=== PATIENT | female | born 1945 | race Caucasian/White ===

== ENCOUNTER → 2017-07-11 | Outpatient (CLI) | payer MEDICARE ==
[2017-07-11 13:08] LABS: Basophils % (A) 1 %; CH 27.6; CHCM 33.2; Eosinophils # (A) 0.3 k/uL (0-0.7); Eosinophils % (A) 6 %; HCT 38.2 % (34.0-46.0); HDW 2.71; HGB 12.8 gm/dL (11.4-16.0); Luc # (Auto) 0.13; Luc % (Auto) 3; Lymphocytes % (A) 39 %; MCH 28.1 pg (25.0-35.0); MCHC 33.6 g/dL (31.0-37.0); MCV 83.6 fL (80.0-100.0); Mean Platelet Volume 6.5; Monocytes # (A) 0.4 k/uL (0-1.0); Monocytes % (A) 7 %; Neutrophils # (A) 2.4 k/uL (1.3-7.7); Neutrophils % (A) 46 %; RBC 4.57 m/uL (3.80-5.40); RDW 13.5 % (11.5-15.5); WBC 5.2 k/uL (3.8-10.6); WBC (Perox) 5.18
[2017-07-11 13:48] LABS: ALT 18 U/L (9-52); AST 17 U/L (14-36); Alkaline Phosphatase 82 U/L (38-126); Anion Gap 6 mmol/L; Blood Urea Nitrogen 16 mg/dL (7-17); Calcium 9.3 mg/dL (8.4-10.2); Carbon Dioxide 29 mmol/L (22-30); Chloride 103 mmol/L (98-107); Cholesterol 238 mg/dL (<200); Glucose 94 mg/dL (74-99); HDL Cholesterol 54 mg/dL (40-60); Non-African American GFR(MDRD) >60 (>60 ml/min/1.73 sqM); Potassium 4.3 mmol/L (3.5-5.1); Sodium 138 mmol/L (137-145); Total Bilirubin 0.3 mg/dL (0.2-1.3); Total Protein 6.5 g/dL (6.3-8.2)
[2017-07-11 14:37] LABS: Vitamin B12 699 pg/mL
== END | disposition home or self-care (01) ==
LOC: LABWHC1 12:14
PROVIDERS: ATTEND Family Medicine
DX: R03.0 Elevated blood-pressure reading, without diagnosis of hypertension (principal); Z79.899 Other long term (current) drug therapy; F41.8 Other specified anxiety disorders; F32.9 Major depressive disorder, single episode, unspecified
CPT/HCPCS: 36415; 80053; 80061; 82607; 84443; 85025

== ENCOUNTER → 2017-07-23 | Outpatient (CLI) | payer MEDICARE ==
--- NOTE | 2017-07-25 12:26 | MM ---
Reason for exam: screening (asymptomatic). Last mammogram was performed 16 years ago. History: Patient is postmenopausal. Family history of breast cancer in mother. Physical Findings: A clinical breast exam by your physician is recommended on an annual basis and results should be correlated with mammographic findings. MG 3D Screening Mammo W/Cad Bilateral CC and MLO view(s) were taken. No prior studies available for comparison. There are scattered fibroglandular densities. A couple circumscribed oval asymmetries are present laterally in the right breast. Cysts or fibroadenomas are possible. 6 month follow up should be performed as no comparison studies are available. ASSESSMENT: Probably benign, BI-RAD 3 RECOMMENDATION: Follow-up diagnostic mammogram of the right breast in 6 months.
== END | disposition home or self-care (01) ==
LOC: RADMAMWWP 14:07
PROVIDERS: ATTEND Family Medicine
DX: Z12.31 Encounter for screening mammogram for malignant neoplasm of breast (principal)
CPT/HCPCS: 77063; G0202

== ENCOUNTER → 2018-02-05 | Outpatient (CLI) | payer MEDICARE ==
--- NOTE | 2018-02-06 07:47 | MM ---
Reason for exam: follow-up at short interval from prior study. Last mammogram was performed 6 months ago. History: Patient is postmenopausal. Family history of breast cancer in mother. Physical Findings: Nurse did not find any significant physical abnormalities on exam. MG 3D Diag Mammo W/Cad RT CC, MLO, and LM view(s) were taken of the right breast. Prior study comparison: July 23, 2017, bilateral MG 3d screening mammo w/cad. The breast tissue is heterogeneously dense. This may lower the sensitivity of mammography. There is a stable group of calcifications in the upper outer quadrant at middle depth in association with a stable focal asymmetry. Upper outer quadrant in the central lateral right breast at middle depth is also stable. These results were verbally communicated with the patient and result sheet given to the patient on 02/05/18. ASSESSMENT: Probably benign, BI-RAD 3 RECOMMENDATION: Follow-up diagnostic mammogram of both breasts in 6 months.
== END | disposition home or self-care (01) ==
LOC: RADMAMWWP 16:01
PROVIDERS: ATTEND Family Medicine
DX: R92.8 Other abnormal and inconclusive findings on diagnostic imaging of breast (principal)
CPT/HCPCS: 77065; G0279

== ENCOUNTER → 2018-06-20 | Outpatient (CLI) | payer MEDICARE ==
--- NOTE | 2018-06-21 09:12 | ECHOF ---
Referral Reason:cardiac murmur R01.1, hypertension I10 MEASUREMENTS -------- HEIGHT: 172.7 cm WEIGHT: 77.6 kg BP: 160/73 RVIDd: 3.3 cm (< 3.3) IVSd: 1.0 cm (0.6 - 1.1) LVIDd: 4.9 cm (3.9 - 5.3) LVPWd: 1.0 cm (0.6 - 1.1) IVSs: 1.6 cm LVIDs: 3.3 cm LVPWs: 1.3 cm LA Diam: 2.5 cm (2.7 - 3.8) LAESV Index (A-L): 15.06 ml/m Ao Diam: 3.8 cm (2.0 - 3.7) AV Cusp: 2.0 cm (1.5 - 2.6) MV EXCURSION: 7.809 mm (> 18.000) MV EF SLOPE: 41 mm/s (70 - 150) EPSS: 1.0 cm SYEDA: 488 ms AVC: 391 ms MV E Ben: 0.68 m/s MV DecT: 481 ms MV A Ben: 1.17 m/s MV E/A Ratio: 0.58 AR PHT: 468 ms RAP: 5.00 mmHg RVSP: 27.80 mmHg FINDINGS -------- Sinus rhythm. This was a technically good study. The left ventricular size is normal. Left ventricular wall thickness is normal. Overall left vent ricular systolic function is normal with, an EF between 55 - 60 %. The right ventricle is mildly enlarged. Normal LA size by volume 22+/-6 ml/m2. The right atrium is normal in size. There is mild aortic valve sclerosis. There is moderate aortic regurgitation. There is no evidenc e of aortic stenosis. Mild mitral annular calcification present. Mild mitral regurgitation is present. Mild tricuspid regurgitation present. Right ventricular systolic pressure is normal at < 35 mmHg. The right ventricular systolic pressure, as measured by Doppler, is 27.80mmHg. The pulmonic valve was not well visualized. There is no pulmonic regurgitation present. The aortic root is dilated measuring 3.8cm. Normal inferior vena cava with normal inspiratory collapse consistent with estimated right atrial pre ssure of 5 mmHg. There is no pericardial effusion. CONCLUSIONS -------- 1. Sinus rhythm. 2. This was a technically good study. 3. The left ventricular size is normal. 4. Left ventricular wall thickness is normal. 5. Overall left ventricular systolic function is normal with, an EF between 55 - 60 %. 6. The right ventricle is mildly enlarged. 7. Normal LA size by volume 22+/-6 ml/m2. 8. There is mild aortic valve sclerosis. 9. There is moderate aortic regurgitation. 10. There is no evidence of aortic stenosis. 11. Mild mitral annular calcification present. 12. Mild mitral regurgitation is present. 13. Mild tricuspid regurgitation present. 14. Right ventricular systolic pressure is normal at < 35 mmHg. 15. The pulmonic valve was not well visualized. 16. There is no pulmonic regurgitation present. 17. The aortic root is dilated measuring 3.8cm. 18. Normal inferior vena cava with normal inspiratory collapse consistent with estimated right atrial pressure of 5 mmHg. 19. There is no pericardial effusion. CO DIRECTOR: Joleen Walden RDCS
== END | disposition home or self-care (01) ==
LOC: RADECHMAIN 14:58
PROVIDERS: ATTEND Family Medicine
DX: I08.3 Combined rheumatic disorders of mitral, aortic and tricuspid valves (principal); I10 Essential (primary) hypertension
CPT/HCPCS: 93306

== ENCOUNTER → 2018-07-12 | Outpatient (CLI) | payer MEDICARE ==
[2018-07-12 12:33] LABS: Basophils % (A) 1 %; Eosinophils # (A) 0.3 k/uL (0-0.7); Eosinophils % (A) 6 %; HCT 40.3 % (34.0-46.0); HGB 13.1 gm/dL (11.4-16.0); Lymphocytes # (A) 1.6 k/uL (1.0-4.8); Lymphocytes % (A) 34 %; MCHC 32.5 g/dL (31.0-37.0); Mean Platelet Volume 6.8; Monocytes # (A) 0.3 k/uL (0-1.0); Monocytes % (A) 7 %; Neutrophils # (A) 2.4 k/uL (1.3-7.7); Neutrophils % (A) 50 %; Platelet Count 218 k/uL (150-450); RBC 4.69 m/uL (3.80-5.40); RDW 13.6 % (11.5-15.5); WBC 4.8 k/uL (3.8-10.6)
[2018-07-12 13:23] LABS: ALT 11 U/L (9-52); AST 19 U/L (14-36); Alkaline Phosphatase 66 U/L (38-126); Anion Gap 8 mmol/L; Blood Urea Nitrogen 17 mg/dL (7-17); Calcium 9.3 mg/dL (8.4-10.2); Carbon Dioxide 28 mmol/L (22-30); Chloride 104 mmol/L (98-107); Cholesterol 250 mg/dL (<200); Glucose 101 mg/dL (74-99); HDL Cholesterol 63 mg/dL (40-60); LDL Cholesterol,Calculated 171 mg/dL (0-99); Potassium 4.7 mmol/L (3.5-5.1); Sodium 140 mmol/L (137-145); Total Bilirubin 0.4 mg/dL (0.2-1.3); Total Protein 6.9 g/dL (6.3-8.2); Triglycerides 80 mg/dL (<150)
== END | disposition home or self-care (01) ==
LOC: LABWHC1 12:10
PROVIDERS: ATTEND Family Medicine
DX: Z00.00 Encounter for general adult medical examination without abnormal findings (principal); I10 Essential (primary) hypertension
CPT/HCPCS: 36415; 80053; 80061; 84443; 85025

== ENCOUNTER 2019-04-28 19:17 | Emergency (ER) | payer MEDICARE ==
[2019-04-28 20:00] VITALS: BP 144/89; PULSE 90; RESP 18; TEMP 98.6
[2019-04-28] MEDS ORDERED: DIPH,PERTUS(ACELL)TETVAC-LF 0.5 ML VIAL IM ONE (20:02)
[2019-04-28] MEDS ORDERED: LIDOCAINE 1% INJ 10MG/ML (20 ML MDV) SQ ONE (20:02)
[2019-04-28] MEDS ORDERED: LIDOCAINE 1%-EPI 1:100,000 20 ML VIAL SQ STA (20:48)
--- NOTE | 2019-04-28 21:28 | ED ---
Wound/Laceration HPI - General Chief Complaint: Wound/Laceration Stated Complaint: Leg Bleed Time Seen by Provider: 04/28/19 19:19 Source: patient, EMS Mode of arrival: EMS Limitations: no limitations - History of Present Illness Initial Comments: 73-year-old female presenting for right lower leg anterior isabel laceration. Patient states she cut her leg with tree trimmers. Patient states she is unable to control the bleeding so she presents emergency department. Patient was brought to emergency per [facility]. 500 L bolus of saline was initiated. Patient blood pressure within normal limits. Bleeding is controlled. No active bleeding at this time. Patient denies numbness tingling or loss sensation of the lower extremity. She denies any pain with ambulation or inability to weight-bear. Patient denies any decreased range of motion at the knee and ankle or foot. Remaining review of system negative. Patient appears well upon arrival. - Related Data Allergies Allergy/AdvReac Type Severity Reaction Status Date / Time codeine Allergy Rash/Hives Verified 04/28/19 20:22 Review of Systems ROS Statement: Those systems with pertinent positive or pertinent negative responses have been documented in the HPI. ROS Other: All systems not noted in ROS Statement are negative. Past Medical History Past Medical History: Hypertension History of Any Multi-Drug Resistant Organisms: None Reported Past Psychological History: ADD/ADHD Smoking Status: Never smoker Past Alcohol Use History: Rare Past Drug Use History: None Reported General Exam - General Exam Comments Initial Comments: General: The patient is awake and alert, in no distress, and does not appear acutely ill. Eye: Pupils are equal, round and reactive to light, extra-ocular movements are intact. No nystagmus. There is normal conjunctiva bilaterally. No signs of icterus. Cardiovascular: There is a regular rate and rhythm. No murmur, rub or gallop is appreciated. Respiratory: Lungs are clear to auscultation, respirations are non-labored, breath sounds are equal. No wheezes, stridor, rales, or rhonchi. Musculoskeletal: Normal ROM, no tenderness. Strength 5/5. Sensation intact. DP pulses equal bilaterally 2+. Cap refill less than 2 seconds. Full range motion of the knee ankles foot bilaterally. Equal. Neurological: A&O x 3. CN II-XII intact, There are no obvious motor or sensory deficits. Coordination appears grossly intact. Speech is normal. Skin: Skin is warm and dry and no rashes or lesions are noted. 3cm lacertion of the right anterior isabel about 4 inches from the knee joint distally. No active bleeding, small amount of adipose exposed. Linear, clean cute. Psychiatric: Cooperative, appropriate mood & affect, normal judgment. Limitations: no limitations Course Vital Signs 04/28/19 19:37 Temperature 98.6 F Pulse Rate 90 Respiratory 18 Rate Blood Pressure 144/89 O2 Sat by Pulse 97 Oximetry Procedures - Laceration Laceration #1 Consent Obtained: verbal consent Indication: laceration Site: lower extremity Size (cm): 3 Description: linear Depth: simple, single layer Anesthetic Used: lidocaine 1% Anesthesia Technique: local infiltration Amount (mls): 3 Pre-repair: wound explored, irrigated extensively, deep structures intact Type of Sutures: nylon Size of Sutures: 4-0 Number of Sutures: 8 Patient Tolerated Procedure: well, no complications Medical Decision Making - Medical Decision Making Well-appearing 33-year-old female presented for right leg laceration bleeding controlled upon arrival. No active bleeding. Patient appears well. Laceration linear appears clean. Laceration is relatively superficial. No evidence of underlying structural damage. No foreign body evident wound extensively irrigated and cleansed with iodine. Repaired. Patient able to weight-bear. Patient neurovascular intact. This time feel patient is stable for discharge. Patient's tetanus was updated today. Parameters including time for suture removal and signs of infection were discussed at length the patient who verbalized understanding prior to discharge Disposition Clinical Impression: Leg laceration, Leg pain Disposition: HOME SELF-CARE Condition: Good Instructions (If sedation given, give patient instructions): Care For Your Stitches (ED), Laceration (ED) Additional Instructions: Please use medication as discussed. Please follow-up with family doctor in the next 2 days. Please return for suture removal in 7-10 days. Please return to emergency room if the symptoms increase or worsen or for any other concerns, redness, warmth, drainage at the site. Is patient prescribed a controlled substance at d/c from ED?: No Referrals: Clemencia Barker MD [Primary Care Provider] - 1-2 days Time of Disposition: 21:27
== END 2019-04-28 21:49 | disposition home or self-care (01) ==
LOC: EC 19:17
DX: S81.811A Laceration without foreign body, right lower leg, initial encounter (principal); Z88.5 Allergy status to narcotic agent; Z23 Encounter for immunization; W27.8XXA Contact with other nonpowered hand tool, initial encounter; Y93.01 Activity, walking, marching and hiking; Y92.009 Unspecified place in unspecified non-institutional (private) residence as the place of occurrence of the external cause
CPT/HCPCS: 90715; 99283; 12002; 90471; J2001

== ENCOUNTER → 2019-05-05 | Outpatient (CLI) | payer MEDICARE ==
--- NOTE | 2019-05-06 18:56 | BD ---
EXAMINATION TYPE: Axial Bone Density DATE OF EXAM: 05/05/2019 COMPARISON: NONE CLINICAL HISTORY: Height loss, Z 78.0, postmenopausal female Height: 65.5 IN Weight: 173 LBS FRAX RISK QUESTIONS: Secondary Osteoporosis: 4. Malnutrition: YES IN EARLY 20'S RISK FACTORS HISTORY OF: Active: YES Postmenopausal woman: AGE 52 Lost more than 2 inches in height since high school: YES 3" MEDICATIONS: Additional Medications: MULTI VIT, ZOLOFT, ADDERALL, ALLERGY MEDS, EXAM MEASUREMENTS: Bone mineral densitometry was performed using the [employer] System. Bone mineral density as measured about the Lumbar spine is: ----- L1-L4(G/cm2): 0.870 T Score Values are as follows: ----- L2: -3.2 ----- L3: -2.5 ----- L4: -1.8 ----- L1-L4: -2.6 Bone mineral density BASELINE Bone mineral density about the R hip (g/cm2): 0.774 Bone mineral density about the L hip (g/cm2): 0.869 T Score values are as follows: -----R Neck: -1.9 -----L Neck: -1.2 -----R Total: -1.5 -----L Total: -1.1 Bone mineral density BASELINE IMPRESSION: Osteoporosis (T Score less than -2.5). There is increased fracture risk and therapy is usually indicated based on age. Re-Screen 1-2 years. NOTE: T-SCORE=SD OF THE YOUNG ADULT MEAN.
--- NOTE | 2019-05-07 09:17 | MM ---
Reason for exam: additional evaluation requested from prior study. Last mammogram was performed 1 year and 3 months ago. History: Patient is postmenopausal. Family history of breast cancer in paternal aunt at age 50 and breast cancer in mother at age 70. Physical Findings: Nurse did not find any significant physical abnormalities on exam. MG 3D Diag Mammo W/Cad LENI Bilateral CC and MLO view(s) were taken. Prior study comparison: February 05, 2018, right breast MG 3d diag mammo w/cad RT. July 23, 2017, bilateral MG 3d screening mammo w/cad. Finding #1: There is a 7 mm high density mass in the upper outer quadrant of the right breast. Finding #2: There are indeterminate calcifications in the upper outer quadrant of the right breast. These results were verbally communicated with the patient and result sheet given to the patient on 05/05/19. ASSESSMENT: Incomplete: need additional imaging evaluation, BI-RAD 0 RECOMMENDATION: Ultrasound of the right breast.
--- NOTE | 2019-05-07 09:19 | USB ---
Reason for exam: additional evaluation requested from abnormal screening. History: Patient is postmenopausal. Family history of breast cancer in paternal aunt at age 50 and breast cancer in mother at age 70. US Breast Limited RT Right limited breast ultrasound including focal area of concern, retroareolar and axilla demonstrates a 0.9 x 0.5 x 0.6cm mixed, hypoechoic lesion at 12 o'clock. These results were verbally communicated with the patient and result sheet given to the patient on 05/05/19. ASSESSMENT: Suspicious, BI-RAD 4 RECOMMENDATION: Ultrasound core biopsy and stereotactic core biopsy of the right breast. (right breast calcifications) Called Dr. Barker with mammographic findings and has scheduled an appointment for the patient for 06/26/19 at 8:[address] Ramos. Biopsy scheduled for 06/13/19 at 8:00. PRELIMINARY REPORT CALLED AND FAXED TO DR. RAMOS ON 05/07/19.
== END | disposition home or self-care (01) ==
LOC: RADMAMWWP 15:21
PROVIDERS: ATTEND Family Medicine
DX: R92.8 Other abnormal and inconclusive findings on diagnostic imaging of breast (principal); M81.0 Age-related osteoporosis without current pathological fracture
CPT/HCPCS: 77080; 77066; 76642; G0279; 77062

== ENCOUNTER → 2019-08-07 | Day surgery (SDC) | payer MEDICARE ==
[2019-08-07 09:58] VITALS: RESP 16; TEMP 98.1; BMI 27.5
[2019-08-07 12:15] VITALS: BP 133/73; PULSE 71
--- NOTE | 2019-08-07 12:42 | USB ---
EXAMINATION TYPE: US biopsy breast VAD RT DATE OF EXAM: 08/07/2019 CLINICAL HISTORY: R92.8 ABN MAMMO. TECHNIQUE: Ultrasound guided core biopsy of right breast. COMPARISON: Right breast ultrasound dated 05/05/2019 FINDINGS: The procedure of ultrasound guided core biopsy was explained to the patient. Benefits, alternatives, and risks were discussed. An informed consent was then obtained. Preprocedural timeout was performed. The patient was placed in supine positioning for imaging and for the procedure. The overlying skin was prepped and draped in usual sterile fashion. Lidocaine buffered with bicarbonate was used as anesthetic into the skin and subcutaneous tissue up to a 0.9 cm mass at the 12:00 position in the right breast. Under ultrasound guidance, a 12-gauge vacuum assisted biopsy gun device was used to obtain 4 core samples. Following this, a wing shaped biopsy marker was left in mass. Postprocedural mammogram demonstrates appropriate biopsy marker placement however the upper outer quadrant left breast calcifications are separate from this biopsy marker and stereotactic guided biopsy was therefore subsequently performed. The patient tolerated the procedure well without any immediate complication. The patient was kept in the radiology department for short stay after the procedure and then discharged home in stable condition. IMPRESSION: Successful, uncomplicated ultrasound guided core biopsy of area of a 0.9 cm mass at the 12:00 position in the right breast, full pathology results to follow. Pathology Results: Benign A. RIGHT BREAST AT TWELVE O'CLOCK POSITION, NEEDLE CORE BIOPSIES: Benign fibroadipose tissue suggestive of lipoma. Negative for breast parenchyma. B. RIGHT BREAST, STEREOTACTIC NEEDLE CORE BIOPSIES: Small fibroadenomatoid lesion in a background of benign fibroadipose breast parenchyma. Recommendation Follow up mammogram and ultrasound of the right breast in 6 months. MTDD
--- NOTE | 2019-08-07 12:47 | MM ---
EXAMINATION TYPE: MG stereo VAD BX RT DATE OF EXAM: 08/07/2019 COMPARISON: Left breast mammogram dated 05/05/2019 CLINICAL HISTORY: Indeterminate left breast calcifications for which stereotactic guided biopsy was recommended. TECHNIQUE: Stereotactic guided core biopsy of right breast. FINDINGS: The procedure of stereotactic guided core biopsy was explained to the patient. Benefits, alternatives, and risks were discussed. An informed consent was then obtained. Preprocedural timeout was performed. [facility] was [facility]. Shortness pathway was lateral medial approach. Preprocedural localization images were obtained and a 3 mm group of calcifications within the upper outer right breast was demonstrated. Coordinates were calculated. Subsequently 10 cc of lidocaine without epinephrine was utilized to anesthetize the skin and deeper subcutaneous soft tissues. The needle was advanced to the appropriate depth. Prefire images were obtained ensuring appropriate location. Postfire injection of 10 cc of lidocaine with epinephrine was utilized to anesthetize the site of biopsy. A vacuum assisted biopsy gun was used to obtain 7 core samples. The patient tolerated the procedure well without any immediate complication. The patient was kept in the radiology department for short stay after the procedure and then discharged home in stable condition. Targeted calcifications are identified in specimen mammogram. Post biopsy mammogram shows the [employer] biopsy marker to appear in satisfactory position relative to the targeted area of concern on the preprocedure images with only 3 mm caudal migration. Small hematoma is seen/postbiopsy change. IMPRESSION: SUCCESSFUL STEREOTACTIC GUIDED CORE BIOPSY OF AREA OF A 3 MM GROUP OF CALCIFICATIONS IN THE UPPER OUTER QUADRANT OF THE RIGHT BREAST AT POSTERIOR DEPTH, FULL PATHOLOGY RESULTS TO FOLLOW. Pathology Results: Benign A. RIGHT BREAST AT TWELVE O'CLOCK POSITION, NEEDLE CORE BIOPSIES: Benign fibroadipose tissue suggestive of lipoma. Negative for breast parenchyma. B. RIGHT BREAST, STEREOTACTIC NEEDLE CORE BIOPSIES: Small fibroadenomatoid lesion in a background of benign fibroadipose breast parenchyma. Recommendation Follow up mammogram and ultrasound of the right breast in 6 months. MTDD
== END | disposition home or self-care (01) ==
LOC: EDSTATUS 07-10 10:20 → RADMAMWWP 09:22
PROVIDERS: ATTEND Surgery
DX: D24.1 Benign neoplasm of right breast (principal); R92.8 Other abnormal and inconclusive findings on diagnostic imaging of breast; R92.1 Mammographic calcification found on diagnostic imaging of breast; Z88.5 Allergy status to narcotic agent
CPT/HCPCS: 88305; 19081; 19083; A4648 ×2; J2001

== ENCOUNTER → 2019-10-31 | Outpatient (CLI) | payer MEDICARE ==
--- NOTE | 2019-10-31 12:55 | XR ---
EXAMINATION TYPE: XR hand complete LT DATE OF EXAM: 10/31/2019 CLINICAL HISTORY: Falling injury with pain and weakness. TECHNIQUE: Frontal, lateral and oblique images of the left hand are obtained. COMPARISON: None. FINDINGS: Demineralization is present. There is subacute oblique nondisplaced fracture proximal metap hysis fifth metacarpal with some callus formation thought present. Slight step off seen on oblique im age confirms fracture. Joint Spaces are preserved. The overlying soft tissue appears unremarkable. IMPRESSION: There is subacute slightly displaced oblique fracture proximal metaphysis fifth metacarpa l.
--- NOTE | 2019-10-31 13:02 | XR ---
EXAMINATION TYPE: XR elbow limited LT DATE OF EXAM: 10/31/2019 CLINICAL HISTORY: Fall injury with pain and weakness. TECHNIQUE: Frontal and lateral images of the left elbow are obtained. COMPARISON: None FINDINGS: Suboptimal due to overlying clothing or blanket material. There is no acute fracture/disloc ation evident in the left elbow. No abnormal fat pad signs are seen. Spur from the medial epicondyle is present. There is additional spurring of the olecranon. IMPRESSION: There is no acute fracture or dislocation in the left elbow.
--- NOTE | 2019-10-31 13:29 | XR ---
EXAMINATION TYPE: XR shoulder complete LT DATE OF EXAM: 10/31/2019 CLINICAL HISTORY: Pain. TECHNIQUE: Three views of the left shoulder are obtained. COMPARISON: None. FINDINGS: Demineralization is present. There is no acute fracture/dislocation evident in the left taina ulder. Mild narrowing of acromioclavicular joint. Glenohumeral joint maintained. Distal acromion morp hology unremarkable. The visualized ribs are intact and unremarkable. Atherosclerotic and ectatic aor tic knob incidentally noted. IMPRESSION: As above.
== END | disposition home or self-care (01) ==
LOC: RADXRMAIN 11:55
PROVIDERS: ATTEND Family Medicine
DX: S62.397A Other fracture of fifth metacarpal bone, left hand, initial encounter for closed fracture (principal); M81.0 Age-related osteoporosis without current pathological fracture; M25.512 Pain in left shoulder; M25.532 Pain in left wrist

== ENCOUNTER 2020-01-02 12:06 | Day surgery (SDC) | payer MEDICARE ==
[2019-12-31 17:22] VITALS: BMI 27.9
[2020-01-02 12:33] VITALS: RESP 16; TEMP 98.9
[2020-01-02 13:40] VITALS: PULSE 67
[2020-01-02 13:52] VITALS: BP 123/78
== END 2020-01-02 14:26 | disposition home or self-care (01) ==
LOC: ORWHC2ENDO 12:06
PROVIDERS: ATTEND Surgery
DX: Z12.11 Encounter for screening for malignant neoplasm of colon (principal); K57.30 Diverticulosis of large intestine without perforation or abscess without bleeding; Q43.9 Congenital malformation of intestine, unspecified; K64.4 Residual hemorrhoidal skin tags; K64.8 Other hemorrhoids; Z83.71 Family history of colonic polyps; I10 Essential (primary) hypertension; J45.909 Unspecified asthma, uncomplicated; M19.90 Unspecified osteoarthritis, unspecified site; F41.9 Anxiety disorder, unspecified; F43.10 Post-traumatic stress disorder, unspecified; F98.8 Other specified behavioral and emotional disorders with onset usually occurring in childhood and adolescence; F32.9 Major depressive disorder, single episode, unspecified; Z98.51 Tubal ligation status; Z98.890 Other specified postprocedural states; Z79.899 Other long term (current) drug therapy; Z88.5 Allergy status to narcotic agent; Z91.09 Other allergy status, other than to drugs and biological substances; Z80.3 Family history of malignant neoplasm of breast; Z80.6 Family history of leukemia
CPT/HCPCS: 45330; J2704

== ENCOUNTER 2020-11-30 20:32 | Emergency (ER) | payer MEDICARE, OTHER ==
[2020-11-30 20:40] VITALS: BP 179/84; PULSE 95; RESP 18; TEMP 98.3
--- NOTE | 2020-11-30 21:06 | ED ---
Psych HPI - General Chief Complaint: Psychiatric Symptoms Stated Complaint: Needs med filled Time Seen by Provider: 11/30/20 20:46 Source: patient, RN notes reviewed Mode of arrival: ambulatory - History of Present Illness Initial Comments: She is a 74-year-old female presents to emergency department with the complaint of she ran out of her psych meds and cannot get in with her psychiatrist or primary care. She noted that she ran out of couple days ago and also reduced her dose to stretch out the medication until she can get in with her primary care or psychiatrist. She denied any suicidal or homicidal thoughts. She states that she just needs enough medication to get her to ask couple weeks until she can get with her primary care to get proper refills. Patient was very pleasant, soft-spoken. She was not distraught, and distress or any pain. Medications that she needs refills on were sertraline 100 mg 2 tabs daily and Adderall prescription. She brought the pill bottles with her just to show staph to make sure there was no confusion.She denied any chest pain shortness breath headache nausea vomiting diarrhea, or fatigue chills - Related Data Home Medications Medication Instructions Recorded Confirmed Dextroamphetamine/Amphetamine 20 mg PO BID 05/30/19 01/02/20 [Adderall] Sertraline HCl [Zoloft] 200 mg PO DAILY 05/30/19 01/02/20 traZODone HCL 50 mg PO HS PRN 05/30/19 01/02/20 Losartan [Cozaar] 50 mg PO DAILY 08/11/19 01/02/20 Albuterol Inhaler (Mhu) [Ventolin 1 - 2 puff INHALATION RT-Q6H PRN 12/31/19 Hfa Inhaler] Multivitamins, Thera [Multivitamin 1 tab PO DAILY 12/31/19 01/02/20 (formulary)] Previous Rx's Medication Instructions Recorded Sertraline [Zoloft] 100 mg PO DAILY 14 Days #28 tab 11/30/20 Allergies Allergy/AdvReac Type Severity Reaction Status Date / Time codeine Allergy Rash/Hives Verified 11/30/20 20:40 Review of Systems ROS Statement: Those systems with pertinent positive or pertinent negative responses have been documented in the HPI. ROS Other: All systems not noted in ROS Statement are negative. Past Medical History Past Medical History: Asthma, Hypertension, Osteoarthritis (OA) Additional Past Medical History / Comment(s): lower abd. pain recently but has subsided for last 3 months, family hx. colon polyps, hx. heart murmur, bronchitis in the summer, recent fall & fx. left pinkie finger-mostly healed History of Any Multi-Drug Resistant Organisms: None Reported Past Surgical History: Breast Surgery, Tubal Ligation Additional Past Surgical History / Comment(s): breast biopsies, D & C, mass removed from inside cheek Past Anesthesia/Blood Transfusion Reactions: No Reported Reaction Past Psychological History: ADD/ADHD, Anxiety, Depression, PTSD Smoking Status: Never smoker Past Alcohol Use History: None Reported Past Drug Use History: None Reported General Exam Limitations: no limitations General appearance: alert, in no apparent distress Head exam: Present: atraumatic, normocephalic, normal inspection Eye exam: Present: normal appearance, PERRL, EOMI. Absent: scleral icterus, conjunctival injection, periorbital swelling ENT exam: Present: normal exam, mucous membranes moist Neck exam: Present: normal inspection. Absent: tenderness, meningismus, lymphadenopathy Respiratory exam: Present: normal lung sounds bilaterally. Absent: respiratory distress, wheezes, rales, rhonchi, stridor Cardiovascular Exam: Present: regular rate, normal rhythm, normal heart sounds. Absent: systolic murmur, diastolic murmur, rubs, gallop, clicks GI/Abdominal exam: Present: soft, normal bowel sounds. Absent: distended, tenderness, guarding, rebound, rigid Extremities exam: Present: normal inspection, full ROM, normal capillary refill. Absent: tenderness, pedal edema, joint swelling, calf tenderness Back exam: Present: normal inspection Neurological exam: Present: alert, oriented X3, CN II-XII intact Psychiatric exam: Present: normal affect, normal mood Skin exam: Present: warm, dry, intact, normal color. Absent: rash Course Vital Signs 11/30/20 20:38 Temperature 98.3 F Pulse Rate 95 Respiratory 18 Rate Blood Pressure 179/84 O2 Sat by Pulse 95 Oximetry Medical Decision Making - Medical Decision Making Patient is a 75-year-old female that presented to the emergency department complaining that she is out of her psychiatric medications. In-depth conversation with patient about mental health, SI/HI, and proper follow-up with primary care and psychiatric provider. Case discussed with Dr. Bray. Disposition Clinical Impression: Depression, Anxiety Disposition: HOME SELF-CARE Condition: Stable Instructions (If sedation given, give patient instructions): Depression (ED) Additional Instructions: Please return to the Emergency Department if symptoms worsen or any other concerns. Follow-up with primary care service possible for proper refills. Follow-up with psychiatric. Is patient prescribed a controlled substance at d/c from ED?: No Referrals: Jonathan Enriquez [Primary Care Provider] - 1-2 days Time of Disposition: 21:45
== END 2020-11-30 21:53 | disposition home or self-care (01) ==
LOC: EC 20:32
DX: F41.9 Anxiety disorder, unspecified (principal); F32.9 Major depressive disorder, single episode, unspecified; I10 Essential (primary) hypertension; J45.909 Unspecified asthma, uncomplicated; F90.9 Attention-deficit hyperactivity disorder, unspecified type; F43.10 Post-traumatic stress disorder, unspecified; Z79.899 Other long term (current) drug therapy; Z88.5 Allergy status to narcotic agent
CPT/HCPCS: 99281

== ENCOUNTER 2020-12-27 17:18 | Emergency (ER) | payer MEDICARE, OTHER ==
[2020-12-27 17:32] VITALS: BP 204/99; PULSE 97; RESP 18; TEMP 98.4
[2020-12-27] MEDS ORDERED: SODIUM CHLORIDE 0.9% 500 ML 500 ML IV STA (19:39)
--- NOTE | 2020-12-27 19:41 | ED ---
General Adult HPI - General Chief complaint: Recheck/Abnormal Lab/Rx Stated complaint: mental health Time Seen by Provider: 12/27/20 19:25 Source: patient, RN notes reviewed, old records reviewed Mode of arrival: ambulatory Limitations: no limitations - History of Present Illness Initial comments: 75-year-old female presenting for evaluation of depression. Patient has been off of her Zoloft for the past several days. She's had some difficulty finding a psychiatrist over the past one month. She does report some physical symptoms of indigestion, chest discomfort, she states she's not feeling well in general. She recently received coronavirus vaccine and believes this may be part of her issue combined with her worsening depression. She denies a suicidal plan but she is quite vague when asked about suicidal thoughts. - Related Data Home Medications Medication Instructions Recorded Confirmed Dextroamphetamine/Amphetamine 20 mg PO BID 05/30/19 01/02/20 [Adderall] Sertraline HCl [Zoloft] 200 mg PO DAILY 05/30/19 01/02/20 traZODone HCL 50 mg PO HS PRN 05/30/19 01/02/20 Losartan [Cozaar] 50 mg PO DAILY 08/11/19 01/02/20 Albuterol Inhaler (Mhu) [Ventolin 1 - 2 puff INHALATION RT-Q6H PRN 12/31/19 01/02/20 Hfa Inhaler] Multivitamins, Thera [Multivitamin 1 tab PO DAILY 12/31/19 01/02/20 (formulary)] Previous Rx's Medication Instructions Recorded Sertraline [Zoloft] 100 mg PO DAILY 14 Days #28 tab 11/30/20 Sertraline [Zoloft] 200 mg PO DAILY #30 tab 12/27/20 Allergies Allergy/AdvReac Type Severity Reaction Status Date / Time codeine Allergy Rash/Hives Verified 12/27/20 17:32 Review of Systems ROS Statement: Those systems with pertinent positive or pertinent negative responses have been documented in the HPI. ROS Other: All systems not noted in ROS Statement are negative. Past Medical History Past Medical History: Asthma, Hypertension, Osteoarthritis (OA) Additional Past Medical History / Comment(s): lower abd. pain recently but has subsided for last 3 months, family hx. colon polyps, hx. heart murmur, bronchitis in the summer, recent fall & fx. left pinkie finger-mostly healed History of Any Multi-Drug Resistant Organisms: None Reported Past Surgical History: Breast Surgery, Tubal Ligation Additional Past Surgical History / Comment(s): breast biopsies, D & C, mass removed from inside cheek Past Anesthesia/Blood Transfusion Reactions: No Reported Reaction Past Psychological History: ADD/ADHD, Anxiety, Depression, PTSD Smoking Status: Never smoker Past Alcohol Use History: None Reported Past Drug Use History: None Reported General Exam Limitations: no limitations General appearance: alert, anxious Head exam: Present: atraumatic, normocephalic Eye exam: Present: normal appearance, PERRL ENT exam: Present: normal exam Neck exam: Present: normal inspection. Absent: tenderness, meningismus Respiratory exam: Present: normal lung sounds bilaterally. Absent: respiratory distress, wheezes Cardiovascular Exam: Present: regular rate, normal rhythm GI/Abdominal exam: Present: soft. Absent: distended, tenderness, guarding Extremities exam: Present: normal inspection, normal capillary refill. Absent: pedal edema Neurological exam: Present: alert, oriented X3 Psychiatric exam: Present: depressed, flat affect, other (Tearful) Skin exam: Present: warm, dry, intact Course Vital Signs 12/27/20 17:25 Temperature 98.4 F Pulse Rate 97 Respiratory 18 Rate Blood Pressure 204/99 O2 Sat by Pulse 98 Oximetry - Reevaluation(s) Reevaluation #1: 12/27/20 20:51 Patient cleared for EPS evaluation EKG Findings - EKG Comments: EKG Findings:: EKG: Normal sinus rhythm with sinus arrhythmia, rate of 80, ID interval 186, QRS duration 86, QTC 447, no ST segment elevation. Medical Decision Making - Medical Decision Making 75-year-old female presenting for evaluation of depression, medication refill. She did have some vague symptoms and lab work was obtained as well as EKG and chest x-rays is unremarkable. Patient feeling better after talking EPS and given outpatient referrals. I will refill her Zoloft. - Lab Data Result diagrams: 12/27/20 19:59 12/27/20 19:59 Lab Results 12/27/20 12/27/20 12/27/20 Range/Units 19:59 19:59 19:59 WBC 6.0 (3.8-10.6) k/uL RBC 4.83 (3.80-5.40) m/uL Hgb 13.8 (11.4-16.0) gm/dL Hct 41.4 (34.0-46.0) % MCV 85.6 (80.0-100.0) fL MCH 28.5 (25.0-35.0) pg MCHC 33.3 (31.0-37.0) g/dL RDW 13.1 (11.5-15.5) % Plt Count 218 (150-450) k/uL MPV 6.4 Neutrophils % 58 % Lymphocytes % 31 % Monocytes % 6 % Eosinophils % 3 % Basophils % 0 % Neutrophils # 3.5 (1.3-7.7) k/uL Lymphocytes # 1.9 (1.0-4.8) k/uL Monocytes # 0.3 (0-1.0) k/uL Eosinophils # 0.2 (0-0.7) k/uL Basophils # 0.0 (0-0.2) k/uL PT 10.0 (9.0-12.0) sec INR 0.9 (<1.2) APTT 24.7 (22.0-30.0) sec Sodium 139 (137-145) mmol/L Potassium 4.3 (3.5-5.1) mmol/L Chloride 103 (98-107) mmol/L Carbon Dioxide 29 (22-30) mmol/L Anion Gap 7 mmol/L BUN 13 (7-17) mg/dL Creatinine 0.55 (0.52-1.04) mg/dL Est GFR (CKD-EPI)AfAm >90 (>60 ml/min/1.73 sqM) Est GFR (CKD-EPI)NonAf >90 (>60 ml/min/1.73 sqM) Glucose 101 H (74-99) mg/dL Plasma Lactic Acid Domingo (0.7-2.0) mmol/L Calcium 9.9 (8.4-10.2) mg/dL Magnesium 2.0 (1.6-2.3) mg/dL Total Bilirubin 0.4 (0.2-1.3) mg/dL AST 25 (14-36) U/L ALT 6 (4-34) U/L Alkaline Phosphatase 87 (38-126) U/L Troponin I (0.000-0.034) ng/mL Total Protein 7.6 (6.3-8.2) g/dL Albumin 4.4 (3.5-5.0) g/dL Urine Color Urine Appearance (Clear) Urine pH (5.0-8.0) Ur Specific Torrey (1.001-1.035) Urine Protein (Negative) Urine Glucose (UA) (Negative) Urine Ketones (Negative) Urine Blood (Negative) Urine Nitrite (Negative) Urine Bilirubin (Negative) Urine Urobilinogen (<2.0) mg/dL Ur Leukocyte Esterase (Negative) Urine RBC (0-5) /hpf Urine WBC (0-5) /hpf Ur Squamous Epith Cells (0-4) /hpf Urine Opiates Screen (NotDetected) Ur Oxycodone Screen (NotDetected) Urine Methadone Screen (NotDetected) Ur Propoxyphene Screen (NotDetected) Ur Barbiturates Screen (NotDetected) U Tricyclic Antidepress (NotDetected) Ur Phencyclidine Scrn (NotDetected) Ur Amphetamines Screen (NotDetected) U Methamphetamines Scrn (NotDetected) U Benzodiazepines Scrn (NotDetected) Urine Cocaine Screen (NotDetected) U Marijuana (THC) Screen (NotDetected) 12/27/20 12/27/20 12/27/20 Range/Units 19:59 19:59 19:59 WBC (3.8-10.6) k/uL RBC (3.80-5.40) m/uL Hgb (11.4-16.0) gm/dL Hct (34.0-46.0) % MCV (80.0-100.0) fL MCH (25.0-35.0) pg MCHC (31.0-37.0) g/dL RDW (11.5-15.5) % Plt Count (150-450) k/uL MPV Neutrophils % % Lymphocytes % % Monocytes % % Eosinophils % % Basophils % % Neutrophils # (1.3-7.7) k/uL Lymphocytes # (1.0-4.8) k/uL Monocytes # (0-1.0) k/uL Eosinophils # (0-0.7) k/uL Basophils # (0-0.2) k/uL PT (9.0-12.0) sec INR (<1.2) APTT (22.0-30.0) sec Sodium (137-145) mmol/L Potassium (3.5-5.1) mmol/L Chloride (98-107) mmol/L Carbon Dioxide (22-30) mmol/L Anion Gap mmol/L BUN (7-17) mg/dL Creatinine (0.52-1.04) mg/dL Est GFR (CKD-EPI)AfAm (>60 ml/min/1.73 sqM) Est GFR (CKD-EPI)NonAf (>60 ml/min/1.73 sqM) Glucose (74-99) mg/dL Plasma Lactic Acid Domingo 0.7 (0.7-2.0) mmol/L Calcium (8.4-10.2) mg/dL Magnesium (1.6-2.3) mg/dL Total Bilirubin (0.2-1.3) mg/dL AST (14-36) U/L ALT (4-34) U/L Alkaline Phosphatase (38-126) U/L Troponin I <0.012 (0.000-0.034) ng/mL Total Protein (6.3-8.2) g/dL Albumin (3.5-5.0) g/dL Urine Color Light Yellow Urine Appearance Clear (Clear) Urine pH 7.0 (5.0-8.0) Ur Specific Torrey 1.007 (1.001-1.035) Urine Protein Negative (Negative) Urine Glucose (UA) Negative (Negative) Urine Ketones Negative (Negative) Urine Blood Trace H (Negative) Urine Nitrite Negative (Negative) Urine Bilirubin Negative (Negative) Urine Urobilinogen <2.0 (<2.0) mg/dL Ur Leukocyte Esterase Negative (Negative) Urine RBC 1 (0-5) /hpf Urine WBC 2 (0-5) /hpf Ur Squamous Epith Cells <1 (0-4) /hpf Urine Opiates Screen Not Detected (NotDetected) Ur Oxycodone Screen Not Detected (NotDetected) Urine Methadone Screen Not Detected (NotDetected) Ur Propoxyphene Screen Not Detected (NotDetected) Ur Barbiturates Screen Not Detected (NotDetected) U Tricyclic Antidepress Not Detected (NotDetected) Ur Phencyclidine Scrn Not Detected (NotDetected) Ur Amphetamines Screen Not Detected (NotDetected) U Methamphetamines Scrn Not Detected (NotDetected) U Benzodiazepines Scrn Not Detected (NotDetected) Urine Cocaine Screen Not Detected (NotDetected) U Marijuana (THC) Screen Not Detected (NotDetected) Disposition Clinical Impression: Depression, Encounter for medication refill Disposition: HOME SELF-CARE Condition: Good Instructions (If sedation given, give patient instructions): Depression (ED) Prescriptions: Sertraline [Zoloft] 200 mg PO DAILY #30 tab Is patient prescribed a controlled substance at d/c from ED?: No Referrals: Jonathan Enriquez [Primary Care Provider] - 1-2 days Time of Disposition: 22:53
[2020-12-27 20:15] LABS: Basophils % (A) 0 %; Eosinophils # (A) 0.2 k/uL (0-0.7); Eosinophils % (A) 3 %; HCT 41.4 % (34.0-46.0); HGB 13.8 gm/dL (11.4-16.0); Lymphocytes # (A) 1.9 k/uL (1.0-4.8); Lymphocytes % (A) 31 %; MCH 28.5 pg (25.0-35.0); MCHC 33.3 g/dL (31.0-37.0); MCV 85.6 fL (80.0-100.0); Mean Platelet Volume 6.4; Monocytes # (A) 0.3 k/uL (0-1.0); Monocytes % (A) 6 %; Neutrophils # (A) 3.5 k/uL (1.3-7.7); Neutrophils % (A) 58 %; Platelet Count 218 k/uL (150-450); RBC 4.83 m/uL (3.80-5.40); RDW 13.1 % (11.5-15.5)
[2020-12-27 20:16] LABS: Appearance,Urine Clear (Clear); Bilirubin,Urine Negative (Negative); Blood,Urine Trace (Negative); Color,Urine Light Yellow; Glucose,Urine (UA) Negative (Negative); Ketones,Urine Negative (Negative); Leukocyte Esterase,Urine Negative (Negative); Nitrite,Urine Negative (Negative); Protein,Urine Negative (Negative); RBC,Urine 1 /hpf (0-5); Specific Gravity,Urine 1.007 (1.001-1.035); Squamous Epithelial Cell,Urine <1 /hpf (0-4); Urobilinogen,Urine <2.0 mg/dL (<2.0); WBC,Urine 2 /hpf (0-5)
[2020-12-27 20:27] LABS: ALT 6 U/L (4-34); AST 25 U/L (14-36); African American GFR (CKD) >90 (>60 ml/min/1.73 sqM); Albumin 4.4 g/dL (3.5-5.0); Alkaline Phosphatase 87 U/L (38-126); Anion Gap 7 mmol/L; Blood Urea Nitrogen 13 mg/dL (7-17); Calcium 9.9 mg/dL (8.4-10.2); Carbon Dioxide 29 mmol/L (22-30); Chloride 103 mmol/L (98-107); Glucose 101 mg/dL (74-99); Non-African American GFR(CKD) >90 (>60 ml/min/1.73 sqM); Potassium 4.3 mmol/L (3.5-5.1); Sodium 139 mmol/L (137-145); Total Bilirubin 0.4 mg/dL (0.2-1.3); Total Protein 7.6 g/dL (6.3-8.2)
[2020-12-27 20:29] LABS: INR 0.9 (<1.2); Partial Thromboplastin Time 24.7 sec (22.0-30.0)
[2020-12-27 20:33] LABS: Amphetamine Screen,Urine Not Detected (NotDetected); Barbiturate Screen,Urine Not Detected (NotDetected); Benzodiazepines Screen,Urine Not Detected (NotDetected); Cocaine Screen,Urine Not Detected (NotDetected); Methadone Screen, Urine Not Detected (NotDetected); Opiate Screen,Urine Not Detected (NotDetected); Oxycodone Screen, Urine Not Detected (NotDetected); Phencyclidine Screen,Urine Not Detected (NotDetected); Tricyclic Antidepressant,Urine Not Detected (NotDetected); Urn Cannabinoid Scrn Not Detected (NotDetected)
--- NOTE | 2020-12-27 21:27 | XR ---
EXAMINATION TYPE: XR chest 2V DATE OF EXAM: 12/27/2020 COMPARISON: 07/25/2017 HISTORY: Weakness TECHNIQUE: Frontal and lateral views of the chest are obtained. FINDINGS: There is no focal air space opacity, pleural effusion, or pneumothorax seen. The cardiac silhouette size is within normal limits. The osseous structures are intact. IMPRESSION: No acute cardiopulmonary process. Right-sided scoliosis.
[2020-12-27] MEDS ORDERED: SERTRALINE 50 MG TAB PO STA (22:45)
== END 2020-12-27 23:17 | disposition home or self-care (01) ==
LOC: EC 17:18
DX: F32.9 Major depressive disorder, single episode, unspecified (principal); Z76.0 Encounter for issue of repeat prescription; M19.90 Unspecified osteoarthritis, unspecified site; F41.9 Anxiety disorder, unspecified; I10 Essential (primary) hypertension; J45.909 Unspecified asthma, uncomplicated; Z79.899 Other long term (current) drug therapy; Z23 Encounter for immunization
CPT/HCPCS: 36415; 71046; 80053; 80306; 81001; 83605; 83735; 84484; 85025; 85610; 85730; 93005; 99284

== ENCOUNTER → 2023-02-07 | Outpatient (CLI) | payer MEDICARE, OTHER ==
--- NOTE | 2023-02-07 14:27 | BD ---
EXAMINATION TYPE: Axial Bone Density DATE OF EXAM: 02/07/2023 CLINICAL HISTORY: 77 years old Female. ICD-10 CODE: M81.0 OSTEOPOROSIS Height: 5 ft 6 in Weight: 168 FRAX RISK QUESTIONS: Alcohol (3 or more units per day): no Family History (Parent hip fracture): no Glucocorticoids (More than 3mos): no (Ex: prednisone, prednisolone, methylprednisolone, dexamethasone, and hydrocortisone). History of Fracture in Adulthood: yes Secondary Osteoporosis: 1. Type 1 Diabetes: no 2. Hyperthyroidism: no 3. Menopause before 45: no 4. Malnutrition: no 5. Chronic liver disease: no Rheumatoid Arthritis: no Current Tobacco Use: no RISK FACTORS HISTORY OF: Surgery to Spine/Hip(right/left)/Wrist (right/left): no Family History of Osteoporosis: no Active: yes Diet low in dairy products/other sources of calcium: no Postmenopausal woman: yes Take estrogen and/or progesterone medications: no Lost more than 2 inches in height since high school: yes Frequent falls: no Poor Health: good Hyperparathyroidism: no Adrenal Insufficiency: no MEDICATIONS: Additional Medications: zoloft, losartan, ventolin as needed, Additional History: EXAM MEASUREMENTS: Bone mineral densitometry was performed using the [employer] System. Bone mineral density as measured about the Lumbar spine is: ----- L1-L4(G/cm2): 0.834 T Score Values are as follows: ----- L1: -3.4 ----- L2: -3.2 ----- L3: -2.3 ----- L4: -2.9 ----- L1-L4: -2.9 Z Score Values are as follows: ----- L1: -2.0 ----- L2: -1.8 ----- L3: -0.9 ----- L4: -1.5 ----- L1-L4: -1.5 Bone mineral density has: decreased -13.4 % since study of: 2019 Bone mineral density about the R hip (g/cm2): 0.758 Bone mineral density about the L hip (g/cm2): 0.853 T Score values are as follows: -----R Neck: -2.0 -----L Neck: -1.3 -----R Total: -1.7 -----L Total: -1.5 Z Score values are as follows: -----R Neck: -0.3 -----L Neck: 0.4 -----R Total: -0.3 -----L Total: 0.0 Bone mineral density has: decreased -4.9 % since study of: 2019 FRAX%s: The graph provided illustrates a 13.4 % chance for a major osteoporotic fx and a 3.5 % chance for the hips probability for fx in 10 years time. IMPRESSION: Osteopenia (T Score between -2.5 and -1). There is slightly increased risk of fracture and the patient may be considered for treatment. Re-Screen 2-5 years. NOTE: T-SCORE=SD OF THE YOUNG ADULT MEAN.
--- NOTE | 2023-02-07 18:14 | CA ---
Transthoracic Echo Report Name: Radha Leal Age: 77 Gender: F : 1945 Exam Date: 02/07/2023 14:13 Exam Location: [place] [facility] Ht (in): 66 Wt (lb): 168 Ordering Physician: Maco Lynch MD Attending/Referring Phys: [employer] Instrument Repairer Joleen Walden RDCS Procedure CPT: Indications: Z12.31; M81.0; I35.1 Cardiac Hx: Technical Quality: Good Contrast 1: Total Dose (mL): Contrast 2: Total Dose (mL): MEASUREMENTS (Male / Female) Normal Values 2D ECHO LV Diastolic Diameter PLAX 4.3 cm 4.2 - 5.9 / 3.9 - 5.3 cm LV Systolic Diameter PLAX 3.1 cm IVS Diastolic Thickness 0.9 cm 0.6 - 1.0 / 0.6 - 0.9 cm LVPW Diastolic Thickness 1.0 cm 0.6 - 1.0 / 0.6 - 0.9 cm LV Relative Wall Thickness 0.4 RV Internal Dim ED PLAX 3.3 cm LVOT Diameter 2.3 cm LA Systolic Diameter LX 3.2 cm 3.0 - 4.0 / 2.7 - 3.8 cm LA Volume 50.4 cm??? 18 - 58 / 22 - 52 cm??? M-MODE Aortic Root Diameter MM 4.2 cm MV E Point Septal Separation 0.9 cm AV Cusp Separation MM 2.3 cm DOPPLER AV Peak Velocity 267.4 cm/s AV Peak Gradient 28.6 mmHg AV Mean Velocity 164.0 cm/s AV Mean Gradient 12.9 mmHg AV Velocity Time Integral 58.3 cm AI Peak Velocity 447.0 cm/s AI Peak Gradient 79.9 mmHg AI Pressure Half Time 492.3 ms LVOT Peak Velocity 160.4 cm/s LVOT Peak Gradient 10.3 mmHg AV Area Cont Eq pk 2.4 cm??? MV Area PHT 3.1 cm??? Mitral E Point Velocity 92.3 cm/s Mitral A Point Velocity 141.9 cm/s Mitral E to A Ratio 0.7 MV Deceleration Time 245.1 ms MV E' Velocity 5.9 cm/s Mitral E to MV E' Ratio 15.6 TR Peak Velocity 263.0 cm/s TR Peak Gradient 27.7 mmHg Right Ventricular Systolic Press 32.1 mmHg FINDINGS Left Ventricle Left ventricular ejection fraction is estimated at 55-60 %. Left ventricular cavity size normal. Left ventricular wall thickness normal. Normal left ventricular wall motion. Right Ventricle Normal right ventricular size and function. Right ventricular systolic pressure within normal limits. Right Atrium Normal right atrial size. Left Atrium Normal left atrial size. Mitral Valve Mitral valve thickened. Mild mitral annular calcification. Trace mitral regurgitation. Aortic Valve Trileaflet aortic valve. Aortic valve sclerosis. Mild aortic stenosis with a peak gradient of 29 mmHg and a mean gradient of 13 mmHg. Moderate aortic regurgitation. Tricuspid Valve Structurally normal tricuspid valve. Mild tricuspid regurgitation. Pulmonic Valve Pulmonic valve not well visualized. Pericardium Normal pericardium. No pericardial effusion. Aorta Moderate to severe aortic dilatation at the level of the sinuses of valsalva 42 mm CONCLUSIONS Normal LV function Moderate aortic regurgitation Mild aortic stenosis Previewed by: Dr. Jered Chase MD (Electronically Signed) Final Date: 07 February 2023 18:13
--- NOTE | 2023-02-08 07:27 | MM ---
Reason for Exam: Screening (asymptomatic). Last mammogram was performed 3 year(s) and 9 month(s) ago. Patient History: Menarche at age 15. First Full-Term at age 22. Postmenopausal. 08/07/2019, Benign Core Biopsy on the right side. 08/07/2019, Benign Core Biopsy on the right side. Paternal aunt had breast cancer, age 50. Mother had breast cancer, age 70. Risk Values: Syl 5 year model risk: 5.0%. NCI Lifetime model risk: 10.6%. Prior Study Comparison: 07/23/2017 Bilateral Screening Mammogram, [facility]. 02/05/2018 Right Diagnostic Mammogram, [facility]. 05/05/2019 Bilateral Diagnostic Mammogram, [facility]. Tissue Density: The breast tissue is heterogeneously dense. This may lower the sensitivity of mammography. Findings: Analyzed By CAD. There is no suspicious group of microcalcifications or new suspicious mass in either breast. 2 biopsy clips within the right breast. Stable focal asymmetry within the upper outer right breast at middle depth. Overall Assessment: Benign, BI-RAD 2 Management: Screening Mammogram of both breasts in 1 year. A clinical breast exam by your physician is recommended on an annual basis and results should be correlated with mammographic findings. Electronically signed and approved by: Tiburcio Casillas D.O.
== END | disposition home or self-care (01) ==
LOC: RADMAMWWP 13:05
PROVIDERS: ATTEND Internal Medicine
DX: Z12.31 Encounter for screening mammogram for malignant neoplasm of breast (principal); M81.0 Age-related osteoporosis without current pathological fracture; I35.1 Nonrheumatic aortic (valve) insufficiency; M85.89 Other specified disorders of bone density and structure, multiple sites; Z78.0 Asymptomatic menopausal state; Z80.3 Family history of malignant neoplasm of breast
CPT/HCPCS: 77063; 77067; 77080; 93306

== ENCOUNTER → 2023-02-14 | Outpatient (CLI) | payer MEDICARE, OTHER ==
--- NOTE | 2023-02-15 06:08 | MR ---
EXAMINATION TYPE: MR brain wo/w con DATE OF EXAM: 02/14/2023 COMPARISON: NONE HISTORY: Brain fog, memory loss. TECHNIQUE: Multiplanar, multisequence images of the brain and brainstem is performed without and with IV contras t, utilizing 7.5 mL intravenous Gadavist . FINDINGS: Diffusion weighted images demonstrate no evidence of a recent infarct or other diffusion ab normality. There is mild to moderate ventricular and sulcal prominence. There are a few tiny scatter ed foci of T2 hyperintensity seen throughout the white matter bilaterally. Approximately 10 scattered lesions are seen. Lesions are nonspecific in appearance and distribution. Midline structures demonstrate normal morphology. The craniocervical junction appears within normal limits. Post contrast images demonstrate no abnormal enhancement. The dural venous sinuses appear pa tent. The visualized sinuses are clear and the globes are intact. Increased fluid signal right mastoi d air cells. IMPRESSION: 1. [id number] diffuse cerebral atrophy and mild chronic small vessel ischemic change. No abnorm al enhancement. 2. Increased fluid signal right mastoid air cells raises concern for right-sided mastoiditis, correla te clinically and with point tenderness is advised.
== END | disposition home or self-care (01) ==
LOC: RADMRIMAIN 20:45
PROVIDERS: ATTEND Internal Medicine
DX: G31.9 Degenerative disease of nervous system, unspecified (principal); R41.89 Other symptoms and signs involving cognitive functions and awareness; I67.82 Cerebral ischemia
CPT/HCPCS: 70553; A9585

== ENCOUNTER → 2023-02-23 | Outpatient (CLI) | payer MEDICARE, OTHER ==
[2023-02-23 20:42] LABS: Basophils # (A) 0.03 X 10*3/uL (0.00-0.10); Basophils % (A) 0.6 %; Eosinophils # (A) 0.21 X 10*3/uL (0.04-0.35); HCT 37.4 % (37.2-46.3); HGB 12.2 g/dL (12.0-15.0); Immature Grans, Automated 0.2 %; Lymphocytes # (A) 1.96 X 10*3/uL (0.90-5.00); Lymphocytes % (A) 37.1 %; MCH 28.3 pg (27.0-32.0); MCHC 32.6 g/dL (32.0-37.0); MCV 86.8 fL (80.0-97.0); Mean Platelet Volume 8.9 fL (9.5-12.2); Monocytes # (A) 0.52 X 10*3/uL (0.20-1.00); Monocytes % (A) 9.8 %; NRBC Per 100 WBC 0 /100 WBCS (0.0-0.0); Neutrophils # (A) 2.55 X 10*3/uL (1.80-7.70); Neutrophils % (A) 48.3 %; Platelet Count 201 X 10*3/uL (140-440); RBC 4.31 X 10*6/uL (4.10-5.20); RDW 13.2 % (11.5-14.5); WBC 5.28 X 10*3/uL (4.50-10.00)
[2023-02-23 21:11] LABS: ALT <5 U/L (8-44); AST 18 U/L (13-35); African American GFR (CKD) 98.2 (60.0-200.0); Albumin 4.2 g/dL (3.8-4.9); Albumin/Globulin Ratio 1.62 (1.60-3.17); Alkaline Phosphatase 82 U/L (41-126); BUN/Creat Ratio 20.57 Ratio (12.00-20.00); Blood Urea Nitrogen 14.4 mg/dL (9.0-27.0); Calcium 9.4 mg/dL (8.7-10.3); Carbon Dioxide 25.7 mmol/L (20.0-27.5); Chloride 100 mmol/L (96-109); Globulin 2.6 g/dL (1.6-3.3); Glucose 104 mg/dL (70-110); LDL Cholesterol,Calculated 165.1 mg/dL (0.0-131.0); Magnesium 2.2 mg/dL (1.5-2.4); Non-African American GFR(CKD) 84.8 (60.0-200.0); Potassium 4.1 mmol/L (3.5-5.5); Sodium 138 mmol/L (135-145); Total Protein 6.8 g/dL (6.2-8.2); VLDL Calculation 13.16 mg/dL (5.00-40.00)
== END | disposition home or self-care (01) ==
LOC: LABWHC1 13:31
PROVIDERS: ATTEND Internal Medicine
DX: M81.0 Age-related osteoporosis without current pathological fracture (principal); R41.89 Other symptoms and signs involving cognitive functions and awareness; R73.01 Impaired fasting glucose
CPT/HCPCS: 36415; 80053; 80061; 82140; 82306; 82607; 82746; 83036; 83735; 84443; 85025